=== PATIENT | male | born 1985 | race Caucasian/White ===

== ENCOUNTER 2017-07-16 12:30 | Outpatient (CLI) | payer OTHER ==
--- NOTE | 2017-07-16 18:06 | MRI Report ---
EXAM: LEFT KNEE MRI WITHOUT CONTRAST EXAM DATE: 07/16/2017 01:16 PM. CLINICAL HISTORY: Pain in left knee. COMPARISON: None. TECHNIQUE: Multiplanar, multisequence T1-weighted and fluid-sensitive sequences of the knee without c ontrast. Other: None. FINDINGS: Bones: No fractures or subluxations. No marrow edema. No bone lesions. Articular Cartilage: Unremarkable. Medial Meniscus: There is a tiny apical tear of the medial meniscus at the junction of middle and pos terior thirds. Please see series 501 image 24. Lateral Meniscus: The lateral meniscus is intact. Cruciate Ligaments: The anterior and posterior cruciate ligaments are intact. Collateral Ligaments: The medial collateral and lateral collateral ligamentous structures are intact. Tendons: The quadriceps, patellar, semimembranosus, and popliteus tendons are unremarkable. Musculature: No edema or fatty atrophy. Other: No effusion. No popliteal cyst. No loose bodies. The medial and lateral retinacula are intact . The subcutaneous tissues and fat pads are unremarkable. IMPRESSION: 1. Tiny apical tear at the medial meniscus at the junction of middle and posterior thirds. 2. No loose bodies. 3. Lateral meniscus, cruciates, collaterals and quadriceps mechanism, bones and articular surfaces ap pear normal. [facility]CULOS[facility] SECTION Referring Provider Line: [phone] SITE ID: [id number]
== END 2017-07-16 12:31 | disposition home or self-care (01) ==
LOC: DI 12:30
PROVIDERS: ATTEND Pediatrics
DX: S83.242A Other tear of medial meniscus, current injury, left knee, initial encounter (principal)

== ENCOUNTER 2020-03-23 07:18 | Outpatient (CLI) | payer OTHER ==
--- NOTE | 2020-03-23 08:53 | MRI Report ---
PROCEDURE: Knee RT W/O INDICATIONS: RT KNEE PAIN TECHNIQUE: Noncontrast sagittal PD fast spin echo and T2 fast spin echo with fat saturation; coronal T1 spin ech o and PD fast spin echo with fat saturation, and axial PD fast spin echo with fat saturation through the knee. COMPARISON: None. FINDINGS: Image quality: Excellent. Menisci: There is horizontal oblique tearing of the posterior horn and body of the medial meniscus e xtending to the inner third of the tibial articular surface. There is a partial discoid configuration of the lateral meniscus without a discrete tear. There is no meniscal extrusion. Cruciate ligaments: The anterior and posterior cruciate ligaments appear intact. Medial structures: The medial collateral ligament appears intact. Visualized portions of the pes an serinus tendons appear normal. No abnormal bursal fluid. Lateral structures: The lateral collateral ligament, long and short heads of the biceps femoris tend on appear intact. The popliteus tendon intact. Iliotibial band appears normal. Anterior structures: The quadriceps and patellar tendons appear intact. Patellar alignment is tenisha l. No femoral trochlear dysplasia or ventral trochlear prominence. No edema in the infrapatellar fa t pad. Bones and cartilage: No bone marrow contusions or fractures. A focal full-thickness cartilage defec t is seen in the Central weightbearing portion of the medial femoral condyle measuring 4 x 3 mm. The articular cartilages and the lateral and anterior compartments are intact. Joint space: There is a small joint effusion. A trace medial popliteal cyst is present. A small amoun t of subcutaneous edema in the prepatellar region is nonspecific. IMPRESSION: 1. Horizontal oblique tearing of the posterior horn and body of medial meniscus extending to the inn er third of the tibial articular surface. 2. Focal full-thickness cartilage defect in the central weightbearing portion of the medial femoral condyle measures 4 x 3 mm. No intra-articular loose body is seen. 3. Partial discoid configuration of the lateral meniscus without a discrete tear. 4. Small joint effusion. Reviewed by: Oc Garcia MD on 03/23/2020 8:52 AM PDT Approved by: Oc Garcia MD on 03/23/2020 8:52 AM PDT Station ID: [id number]
== END 2020-03-23 07:19 | disposition home or self-care (01) ==
LOC: DI 07:18
DX: S83.241A Other tear of medial meniscus, current injury, right knee, initial encounter (principal); S83.8X1A Sprain of other specified parts of right knee, initial encounter; M25.461 Effusion, right knee

== ENCOUNTER 2021-05-03 10:39 | Outpatient (CLI) | payer OTHER ==
--- NOTE | 2021-05-03 15:45 | XRAY Report ---
PROCEDURE: Knee 4 View RT INDICATIONS: RIGHT KNEE PAIN TECHNIQUE: 4 views of the right knee acquired including a bilateral AP weightbearing view of both kn ees. COMPARISON: None. FINDINGS: Bones: No fractures or dislocations. There is minimal joint space narrowing in the medial compartmen t. No suspicious bony lesions. Soft tissues: There is a small joint effusion. No suspicious soft tissue calcifications. IMPRESSION: 1. Minimal joint space narrowing in the medial compartment. 2. Small right joint effusion. Reviewed by: Keagan Mccoy MD on 05/03/2021 3:44 PM PDT Approved by: Keagan Mccoy MD on 05/03/2021 3:44 PM PDT Station ID: [id number]
== END 2021-05-03 10:40 | disposition home or self-care (01) ==
LOC: DI.N 10:39
PROVIDERS: ATTEND Orthopaedic Surgery
DX: M25.561 Pain in right knee (principal); M25.461 Effusion, right knee

== ENCOUNTER 2021-06-08 09:44 | Day surgery (SDC) | payer OTHER ==
[~2021-06-08 09:44] MED LIST: BACITRACIN ZINC OINT 1 PACKET TOP ONE; BUPIVACAINE 0.25% PF 30 ML VIAL ONE; EPINEPHrine 1 MG/ML AMP ONE
[2021-06-08] MEDS ORDERED: fentaNYL 100 MCG/2 ML VIAL ONE (09:59)
[2021-06-08] MEDS ORDERED: MIDAZOLAM 2 MG/2 ML VIAL ONE (09:59)
[2021-06-08] MEDS ORDERED: LACTATED RINGERS 1,000 ML IV ONE ×2 (10:05→12:11)
[2021-06-08] MEDS ORDERED: CELECOXIB 100 MG CAPSULE PO ONE ×2 (10:15→10:16)
[2021-06-08] MEDS ORDERED: ACETAMINOPHEN 500 MG TABLET PO ONE (10:16)
[2021-06-08] MEDS ORDERED: KETOROLAC 15 MG/ML VIAL IVP STA (10:29)
[2021-06-08] MEDS ORDERED: oxyCODONE 5 MG TABLET PO PRN (10:29)
[2021-06-08] MEDS ORDERED: MORPHINE 2 MG/ML CARPUJECT IVP PRN (10:49)
[2021-06-08] MEDS ORDERED: ePHEDrine 50 MG/ML VIAL IVP PRN (10:49)
[2021-06-08] MEDS ORDERED: ATROPINE ABBOJECT 1 MG/10 ML SYRINGE IVP PRN (10:49)
[2021-06-08] MEDS ORDERED: NALOXONE 0.4 MG/ML VIAL IVP PRN (10:49)
[2021-06-08] MEDS ORDERED: fentaNYL 100 MCG/2 ML VIAL IVP PRN (10:49)
[2021-06-08] MEDS ORDERED: METOCLOPRAMIDE 10 MG/2 ML VIAL IVP PRN (10:49)
[2021-06-08] MEDS ORDERED: ONDANSETRON 4 MG/2 ML VIAL IVP PRN (10:49)
[2021-06-08] MEDS ORDERED: HYDROmorphone 0.5 MG/0.5 ML SYRINGE IVP PRN (10:49)
--- NOTE | 2021-06-08 10:49 | ANESTHESIA ---
Pre-Anesthesia VS, & Labs - Diagnosis R knee pain - Procedure R knee scope Vital Signs: Temp Pulse Resp BP Pulse Ox 36.5 C 67 14 126/91 H 100 06/08/21 10:17 06/08/21 10:17 06/08/21 10:17 06/08/21 10:17 06/08/21 10:17 Height: 5 ft 11 in Weight (kg): 95.5 kg Body Mass Index: 29.3 BMI Classification: Overweight - NPO >8 hours - Lab Results Lab results reviewed: Yes Home Medications and Allergies Home Medications: Ambulatory Orders Naproxen 250 mg PO BID PRN 05/25/21 Active Medications Oxycodone HCl (Oxycodone 5 Mg Tablet) 5 mg PO Q4HR PRN PRN Reason: PAIN Naproxen 250 mg PO BID PRN 05/25/21 Allergies/Adverse Reactions: Allergies Allergy/AdvReac Type Severity Reaction Status Date / Time No Known Drug Allergies Allergy Verified 02/08/15 16:42 Anes History & Medical History - Anesthetic History Anesthesia Complications: reports: No previous complications Family history of Anesthesia Complications: Denies Family history of Malignant Hyperthermia: Denies - Medical History Cardiovascular: reports: None Pulmonary: reports: None Gastrointestinal: reports: GERD, Ulcers, Colon polyps Urinary: reports: None Musculoskeletal: reports: Chronic back pain Endocrine/Autoimmune: reports: None Skin: reports: None Smoking Status: Never smoker - Surgical History General: reports: Colonoscopy Orthopedic: reports: Rotator cuff repair, Arthroscopic surgery Exam General: Alert, Oriented x3, Cooperative Dental: WNL Mouth Opening: Greater than 4 Fingerbreadths Neck Mobility: Normal Mallampati classification: I Thyromental Distance: 4-6 cm Respiratory: Lungs clear, Normal breath sounds, No respiratory distress Cardiovascular: Regular rate Neurological: Normal speech Mental/Cognitive Status: Alert/Oriented X3, Normal for patient Cognitive Status: Within normal limits Plan Anesthesia Type: General Consent for Procedure(s) Verified and Reviewed: Yes Code Status: Attempt Resuscitation ASA classification: 2-Mild systemic disease Is this case an emergency?: No
[2021-06-08] MEDS ORDERED: LACTATED RINGERS 1,000 ML IV SCH (11:00)
[2021-06-08] MEDS ORDERED: LIDOCAINE MPF 2%-EPI 1:200000 20 ML VIAL ONE (11:12)
[2021-06-08] MEDS ORDERED: PROPOFOL 200 MG/20 ML VIAL IVP ONE (11:12)
[2021-06-08] MEDS ORDERED: HYDROmorphone 1 MG/ML CARPUJECT ONE (11:16)
[2021-06-08] MEDS ORDERED: BUPIVACAINE 0.25% PF 30 ML VIAL SUBQ ONE (11:30)
--- NOTE | 2021-06-08 12:00 | OPERATIVE REPORT ---
Operative Report - General Procedure Date: 06/08/21 Planned Procedure: Arthroscopy right knee, meniscal repair and possible chondroplasty/microfracture Pre-Op Diagnosis: Torn medial meniscus right knee with medial femoral condyle articular carti Procedure Performed: Arthroscopy right knee, partial medial meniscectomy and chondroplasty medial femoral condyle right knee Post Op Diagnosis: Degenerative tear posterior horn medial meniscus and partial thickness steve - Procedure Note Primary Surgeon: Kole Alfaro MD Secondary Surgeon: Wilberto CLEMENS Anesthesia Provider: Cayla Marie CRNA Anesthesia Technique: General LMA Estimated Blood Loss (mL): 5 Indications: This is a healthy active young man from the [place]. He has had pain to his right knee with activity localized to the medial aspect of his right knee. He has tried nonoperative treatment. His exam showed medial joint line tenderness, good stability right knee. Routine radiographs right knee, weightbearing her normal. His MRI scan suggested a tear of his medial meniscus and a focal articular cartilage defect to medial femoral condyle. Findings: There was degenerative fraying to most of the posterior horn of the medial meniscus. The posterior root was intact. There is subtle horizontal cleavage tear. There is no peripheral tears. The meniscus was stable to probing. There was a partial thickness articular cartilage defect approximately 1 cm to the weightbearing surface of the medial femoral condyle. The articular cartilage defect was a grade 2-3 over 4 defect. The cruciate ligaments were normal the lateral compartment and lateral meniscus was normal. The medial lateral gutters were normal. The patellofemoral joint was normal. He has good stability of the right knee under anesthesia. Complications: None - Other Other Information/Narrative: The patient was brought to the operating room, placed in the supine position. He is given a general anesthetic. I examined his right knee under anesthesia and was stable to varus and valgus stress, negative drawer and Ron and negative pivot shift test. The right lower extremity was prepped and draped in a sterile manner in the usual fashion. A thigh pulse was applied to the operating room table and a pneumatic tourniquet was applied to the proximal right thigh. A timeout procedure was performed by the entire operating room team and all were in agreement. A 3 portal arthroscopic procedure was performed. Outflow was taken through a superior lateral portal. The anterolateral portal was used for the diagnostic arthroscope. The anteromedial portal was used for a instrument portal. The my3Dreams 4 mm 30 degree of like diagnostic arthroscope in conjunction with my3Dreams video camera was utilized throughout the procedure. Inflow was brought through the arthroscope using the Arthrex arthroscopic pump. Complete diagnostic arthroscopy was performed. The tear of the medial meniscus was stabilized using the [place] 50 degrees small radiofrequency probe and the 4 mm Arthrex meniscal shaver. This created a stable meniscal rim. The meniscus was not a repairable lesion as this was more of a degenerative tear rather than a traumatic tear. With a meniscal root was probed for instability and it was completely intact. The cruciate ligaments were completely normal. The lateral compartment was completely normal with normal articular cartilage and normal lateral meniscus. There was a superficial defect to the weightbearing surface articular surface of the medial femoral condyle. This articular defect was debrided to a stable rim using the Arthrex shaver at 8000 RPM. The defect was not full-thickness and measured about a centimeter. The incision sites were closed with 3-0 nylon and the incision sites were injected subcutaneously with 0.25% Marcaine. A dry sterile dressing with Marino bandage was applied to the right knee. The patient tolerated the procedure very well. A physician assist ant was utilized during the procedure to facilitate the procedure including manipulation of the knee to allow joint exposure and also assistance with the arthroscopic instruments. This also included suturing of the incisions and dressing.
[2021-06-08] MEDS ORDERED: oxyCODONE 5 MG TABLET ONE (13:07)
--- NOTE | 2021-06-08 13:10 | ANESTHESIA POST OP EVALUATION ---
Anesthesia Post Eval - Post Anesthesia Eval Vitals: Last Vital Signs Temp 36.5 C 06/08/21 12:56 Pulse 75 06/08/21 12:56 Resp 11 L 06/08/21 12:56 BP 129/81 H 06/08/21 12:56 Pulse Ox 100 06/08/21 12:56 CV Function Including HR & BP: Stable Pain Control: Satisfactory Nausea & Vomiting: Negative Mental Status: Baseline Respiratory Status: Airway Patent Hydration Status: Satisfactory Anesthesia Complications: None
[2021-06-08 14:07] VITALS: BP 133/66
== END 2021-06-08 09:45 | disposition home or self-care (01) ==
LOC: SDS 09:44
PROVIDERS: ATTEND Orthopaedic Surgery
DX: M23.231 Derangement of other medial meniscus due to old tear or injury, right knee (principal); M23.91 Unspecified internal derangement of right knee; M17.11 Unilateral primary osteoarthritis, right knee
CPT/HCPCS: 29881; A9270; C1713; J1170; J7120